=== PATIENT | female | born 1975 | race Caucasian/White ===

== ENCOUNTER → 2017-01-05 | Outpatient (CLI) | payer BC ==
--- NOTE | 2017-01-05 11:16 | DIAGNOSTIC IMAGING REPORT ---
[facility] CLINICAL HISTORY: ACUTE FLANK PAIN COMPARISON STUDY: No previous studies for comparison. FINDINGS: The renal shadows are partially obscured by overlying bowel gas and fecal material. No definite renal calculi are visualized. There is no pathologic bowel dilatation. There are multiple nonspecific pelvic basin calcifications, likely representing phleboliths. If there is clinical concern over the presence of a distal ureteral calculus, a CT scan could be obtained in follow-up. IMPRESSION: 1. No evidence of pathologic bowel dilatation 2. Multiple nonspecific pelvic basin calcifications Electronically signed by: Calixto Garcia M.D. 01/05/2017 11:15 AM Dictated Date/Time: 01/05/2017 11:14 AM
== END | disposition home or self-care (01) ==
LOC: C.RADPV 10:42
PROVIDERS: ATTEND Nurse Practitioner
DX: R10.9 Unspecified abdominal pain (principal); R30.0 Dysuria

== ENCOUNTER → 2017-05-01 | Outpatient (CLI) | payer BC | END | disposition home or self-care (01) | LOC: C.LABPVFM 11:33 | PROVIDERS: ATTEND Nurse Practitioner | DX: E89.0 Postprocedural hypothyroidism (principal) ==